=== PATIENT | female | born 1955 | race Caucasian/White ===

== ENCOUNTER → 2019-06-24 | Outpatient (CLI) | payer SELFPAY ==
[2019-06-24 16:03] VITALS: BP 135/72; PULSE 64; RESP 18; TEMP 97.6; BMI 36.5
--- NOTE | 2019-06-24 16:45 | P.GSHP ---
History of Present Illness H&P Date: 06/24/19 Chief Complaint: Radiographic abnormality left breast The patient is a 64-year-old white female [place] [id number]. Following this there was noted to be some changes of concern in the breast and it was recommended that she undergo bilateral breast ultrasound. [place] [address]. In the right breast there was a small lesion felt to be consistent with a lipoma and in the 12 o'clock position of the left breast was circumscribed oval mass measuring 1.1 x 1.1 cm. Patient in the left breast was felt to be suspicious enough to warrant ultrasound core biopsy. The patient has not felt anything in her b reast. She has no nipple discharge or skin changes. She has no history of any trauma or infection in the breast. Family History: none Hormonal History: menarche: 13 , breast fed: yes, age at first : 30 menopause: 54 BCP: 10 years hormones: none Past surgical history: 1. Tonsillectomy 2. Past medical history: HTN Social History: smoke: stopped 2 years ago, used to smoke 1/2 PPD, for 30 years alcohol: none drugs: none - Constitutional Constitutional: Denies chills, Denies fever - EENT Comment: glaucoma Eyes: denies blurred vision, denies pain Ears: deny: decreased hearing, tinnitus Ears, nose, mouth and throat: Denies headache, Denies sore throat - Breasts Breasts: bilateral: as per HPI - Cardiovascular Cardiovascular: Reports high blood pressure, Denies chest pain, Denies shortness of breath - Respiratory Comment: former smoker - Gastrointestinal Gastrointestinal: Denies abdominal pain, Denies diarrhea, Denies nausea, Denies vomiting - Genitourinary (Female) Genitourinary: Denies dysuria, Denies hematuria - Menstruation Menstruation: Reports postmenopausal - Musculoskeletal Musculoskeletal: Denies myalgias - Integumentary Integumentary: Denies pruritus, Denies rash - Neurological Comment: essential tremor for 6 years ago Neurological: Reports tremors - Psychiatric Psychiatric: Reports anxiety, Reports depression - Endocrine Endocrine: Reports weight change, Denies fatigue - Hematologic/Lymphatic Comment: low dose aspirin, stopped for biopsy - Allergic/Immunologic Allergic/Immunologic: Reports as per HPI Past Medical History History of Any Multi-Drug Resistant Organisms: None Reported Smoking Status: Former smoker Medications and Allergies Home Medications Medication Instructions Recorded Confirmed Type Aspirin [Adult Low Dose Aspirin EC] 81 mg PO DAILY 06/16/19 06/24/19 History Escitalopram [Lexapro] 10 mg PO DAILY 06/16/19 06/24/19 History Latanoprost/Pf [Latanoprost 0.005% 1 drop BOTH EYES HS 06/16/19 06/24/19 History Eye Drop] Lisinopril-Hctz 10-12.5 mg 1 tab PO DAILY 06/16/19 06/24/19 History [Zestoretic 10-12.5] Lovastatin [Mevacor] 40 mg PO HS 06/16/19 06/24/19 History Primidone [Mysoline] 50 mg PO BID 06/16/19 06/24/19 History Propranolol HCl [Propranolol HCl 80 mg PO DAILY 06/16/19 06/24/19 History ER] Timolol 0.5% Ophth Soln [Timoptic 1 drop BOTH EYES DAILY 06/16/19 06/24/19 History 0.5% Ophth Soln] clonazePAM [KlonoPIN] 0.5 mg PO DAILY 06/16/19 06/24/19 History Allergies Allergy/AdvReac Type Severity Reaction Status Date / Time meperidine [From Demerol] AdvReac Nausea Unverified 06/24/19 16:03 Surgical - Exam Vital Signs Temp Pulse Resp BP Pulse Ox 97.6 F 64 18 135/72 95 06/24/19 15:59 06/24/19 15:59 06/24/19 15:59 06/24/19 15:59 06/24/19 15:59 BMI 36.5 - General well developed, well nourished, no distress - Eyes normal ocular movement - ENT no hearing loss, no congestion - Neck trachea midline - Respiratory normal respiratory effort, clear to auscultation - Cardiovascular Rhythm: regular Heart Sounds: normal: S1, S2 - Abdomen Abdomen: soft, non tender, no guarding, no rigid, no rebound - Integumentary normal turgor - Neurologic no disoriented, no combative - Musculoskeletal normal gait, normal posture - Psychiatric oriented to time, oriented to person, oriented to place, speech is normal, memory intact Breast examination: Right breast: Multi-positional exam fibrocystic changes no dominant mass or nodules of concern Right axilla: No adenopathy of concern Left breast: Multiple positional exam fibroglandular increased density of tissue behind the nipple areolar complex, no other dominant masses or nodules of concern Left axilla: No adenopathy of concern Results Mammogram and ultrasound results reviewed Right breast to have repeat mammogram and ultrasound in 6 months to be cautious and follow this Left breast: Ultrasound-guided core biopsy of 12:00 lesion which corresponds to probably lesion behind the area where complex Assessment and Plan Assessment: Impression: 1. Mammographic abnormality of the breast 2. Ultrasound abnormality of the breast 2. Fibrocystic breast changes 4. Increased nodularity in the left posterior work area 5. Hypertension 6. Essential tremor 7. Anxiety/depression I discussed with the patient the need for a left breast ultrasound core biopsy. We will have discussed this and benefits and she wishes to proceed. Plan: 1. Ultrasound core biopsy left breast 2. Right breast mammogram and ultrasound in 6 months 3. Medical management of medical conditions CC: DR. Jayleen Mares
== END | disposition home or self-care (01) ==
LOC: WWCWWP 15:52
PROVIDERS: ATTEND Surgery
DX: Z53.9 Procedure and treatment not carried out, unspecified reason (principal)

== ENCOUNTER → 2019-06-30 | Day surgery (SDC) | payer SELFPAY ==
[2019-06-30 13:24] VITALS: BP 140/78; PULSE 59; RESP 16; TEMP 98.1; BMI 37.8
--- NOTE | 2019-06-30 14:53 | USB ---
EXAMINATION TYPE: US discontinued breast bx LT DATE OF EXAM: 06/30/2019 COMPARISON: Outside left breast ultrasound and diagnostic mammogram dated 05/26/2019 CLINICAL HISTORY: Left breast ductal ectasia with internal debris. Request for biopsy. No nipple disc harge. Patient is asymptomatic. PROCEDURE: Real-time imaging was performed of the patient's retroareolar region with attention to the 12:00 position in the left breast. The previously seen ductal ectasia is redemonstrated however no i ntraductal filling defect or debris is seen. The patient again is asymptomatic without nipple dischar ge. Therefore no percutaneous biopsy was performed. Findings and recommendation for six-month follow- up left breast ultrasound were discussed with the patient. IMPRESSION: BI-RADS 3-probably benign. Ductal ectasia with no intraductal filling defect. The patien t was counseled on the nipple discharge and return if anything discharge recurs prior to the 6 month follow-up ultrasound.
== END | disposition home or self-care (01) ==
LOC: RADUSWWP 13:04
PROVIDERS: ATTEND Surgery
DX: R92.8 Other abnormal and inconclusive findings on diagnostic imaging of breast (principal); Z53.8 Procedure and treatment not carried out for other reasons

== ENCOUNTER → 2020-01-03 | Outpatient (CLI) | payer BC ==
--- NOTE | 2020-01-04 08:00 | MM ---
Reason for exam: follow-up at short interval from prior study. Last mammogram was performed 16 years and 10 months ago. History: Patient is postmenopausal. US discontinued breast bx LT of the left breast, June 30, 2019. Physical Findings: Nurse did not find any significant physical abnormalities on exam. MG 3D Diag Mammo W/Cad CORBIN Bilateral CC and MLO view(s) were taken. Prior study comparison: May 26, 2019, mammogram. There are scattered fibroglandular densities. 6mm nodular focal asymmetry 5-6 o'clock right breast zone A. Otherwise, no significant change. These results were verbally communicated with the patient and result sheet given to the patient on 01/03/20. ASSESSMENT: Incomplete: need additional imaging evaluation, BI-RAD 0 RECOMMENDATION: Ultrasound of both breasts.
--- NOTE | 2020-01-04 08:06 | USB ---
Reason for exam: additional evaluation requested from abnormal screening. History: Patient is postmenopausal. US discontinued breast bx LT of the left breast, June 30, 2019. US Breast Limited BILAT Right limited breast ultrasound including focal area of concern, retroareolar and axilla demonstrates a 3 x 2 x 4mm oval, cystic, benign lesion at 6 o'clock and a 5 x 2 x 7mm oval, cystic, benign lesion at 6 o'clock. Left limited breast ultrasound including focal area of concern, retroareolar and axilla demonstrates a 11 x 6 x 12mm oval, hyperechoic, questionable lipoma at 2 o'clock stable for 6 months, additional follow up recommended and duct ectasia at the posterior nipple. Right scanned 5-9 o'clock. Left scanned 12-3 o'clock. These results were verbally communicated with the patient and result sheet given to the patient on 01/03/20. ASSESSMENT: Probably benign, BI-RAD 3 RECOMMENDATION: Follow-up diagnostic mammogram of the right breast in 6 months. Ultrasound of the left breast in 6 months. (2 o'clock)
== END | disposition home or self-care (01) ==
LOC: RADMAMWWP 13:28
PROVIDERS: ATTEND Surgery
DX: R92.8 Other abnormal and inconclusive findings on diagnostic imaging of breast (principal)
CPT/HCPCS: 77062; 77066

== ENCOUNTER → 2022-04-30 | Outpatient (CLI) | payer MEDICARE ==
--- NOTE | 2022-04-30 15:01 | MM ---
Reason for Exam: Follow-up at short interval from prior study. Last mammogram was performed 2 year(s) and 4 month(s) ago. Patient History: Menarche at age 14. First Full-Term at age 30. Postmenopausal. 06/30/2019, US discontinued breast bx LT on the left side. Risk Values: Judit 5 year model risk: 1.9%. NCI Lifetime model risk: 6.7%. Prior Study Comparison: 03/14/2003 Bilateral Screening Mammogram, [facility]. 05/26/2019 Screening Mammogram, Unknown. 01/03/2020 Bilateral Diagnostic Mammogram, [facility]. Tissue Density: There are scattered fibroglandular densities. Findings: Analyzed By CAD. Circumscribed low density nodularity medial subareolar right cc view remains unchanged for 2 years 4 months. This is compatible with a benign etiology. No significant change from prior exams. Overall Assessment: Benign, BI-RAD 2 Management: Screening Mammogram of both breasts in 1 year. 1. A clinical breast exam by your physician is recommended on an annual basis and results should be correlated with mammographic findings. 2. Patient should continue monthly self breast exams. 3. This exam should not preclude additional follow-up of suspicious palpable abnormalities. Results were given to the patient verbally at the time of exam. Electronically signed and approved by: Mary Carmen M.D. Radiologist
--- NOTE | 2022-04-30 18:57 | BD ---
EXAMINATION TYPE: Axial Bone Density DATE OF EXAM: 04/30/2022 COMPARISON: NONE CLINICAL HISTORY: 67 years year old Female. ICD-10 CODE: Z780 POST MENOPAUSAL WITHOUT HRT Height: 4 FT 10 1/2 IN Weight: 164 FRAX RISK QUESTIONS: Alcohol (3 or more units per day): NO Family History (Parent hip fracture): NO Glucocorticoids (More than 3mos): NO (Ex: prednisone, prednisolone, methylprednisolone, dexamethasone, and hydrocortisone). History of Fracture in Adulthood: NO Secondary Osteoporosis: 1. Type 1 Diabetes: NO 2. Hyperthyroidism: NO 3. Menopause before 45: NO 4. Malnutrition: NO 5. Chronic liver disease: NO Rheumatoid Arthritis: NO Current Tobacco Use: NO RISK FACTORS HISTORY OF: Surgery to Spine/Hip(right/left)/Wrist (right/left): NO Family History of Osteoporosis: NO Active: NO Diet low in dairy products/other sources of calcium: NO Postmenopausal woman: YES Take estrogen and/or progesterone medications: NO Lost more than 2 inches in height since high school: NO Frequent falls: NO Poor Health: GOOD Hyperparathyroidism: NO Adrenal Insufficiency: NO MEDICATIONS: Additional Medications: TOPAMAX, KLONOPIN, INDERAL,BETIMOL,XALATAN,LISINOPRIL CRESTOR Additional History: EXAM MEASUREMENTS: Bone mineral densitometry was performed using the [employer] System. Bone mineral density as measured about the Lumbar spine is: ----- L1-L4(G/cm2): 1.128 T Score Values are as follows: ----- L1: -1.0 ----- L2: -0.1 ----- L3: 0.5 ----- L4: -1.2 ----- L1-L4: -0.4 [facility] Bone mineral density about the R hip (g/cm2): 0.906 Bone mineral density about the L hip (g/cm2): 0.891 T Score values are as follows: -----R Neck: -0.9 -----L Neck: -1.1 -----R Total: -0.1 -----L Total: -0.1 [facility] FRAX%s: The graph provided illustrates a 3.0 % chance for a major osteoporotic fx and a 0.4 % chance for the hips probability for fx in 10 years time. IMPRESSION: Osteopenia (T Score between -2.5 and -1). There is slightly increased risk of fracture and the patient may be considered for treatment. Re-Screen 2-5 years. NOTE: T-SCORE=SD OF THE YOUNG ADULT MEAN.
== END | disposition home or self-care (01) ==
LOC: RADMAMWWP 13:05
PROVIDERS: ATTEND Family Medicine
DX: R92.8 Other abnormal and inconclusive findings on diagnostic imaging of breast (principal); Z78.0 Asymptomatic menopausal state
CPT/HCPCS: 77066; 77080

== ENCOUNTER → 2022-04-30 | Outpatient (CLI) | payer OTHER ==
[2022-04-30 13:32] VITALS: BP 143/84; PULSE 55; RESP 17; TEMP 98.7
--- NOTE | 2022-04-30 14:44 | P.HPOB ---
History of Present Illness H&P Date: 04/30/22 Chief Complaint: The patient is here for her routine gynecologic exam and ma mmogram. This is a 67-year-old with an LMP of 2008. The patient is here to establish with this office. It has been more than 5 years since her last pelvic exam. She is without gynecologic complaints. Her last mammogram on 01/03/2020 did require bilateral ultrasound. A 6 month follow-up for a right diagnostic mammogram and left breast ultrasound was recommended. This was not done by the patient. She had one bone density test done at age 41 and she states it was normal. Review of Systems The patient's weight has been stable over the last year. She denies respiratory, cardiac, or G.I. problems. Past Medical History Past Medical History: Hyperlipidemia, Hypertension Additional Past Medical History / Comment(s): ESSENTIAL TREMOR, GLAUCOMA. PAST INSURANCE SOLICITOR HISTORY: She has no history of STDs. Cryotherapy of the cervix in approximately 1999. History of Any Multi-Drug Resistant Organisms: None Reported Past Surgical History: Section, Tonsillectomy Additional Past Surgical History / Comment(s): LASIK EYE SURGERY. section. Past Anesthesia/Blood Transfusion Reactions: No Reported Reaction Past Psychological History: Anxiety, Depression (No current depression without medications.) Smoking Status: Former smoker Past Alcohol Use History: None Reported Additional Past Alcohol Use History / Comment(s): Quit smoking in 2018. Past Drug Use History: None Reported Additional History: She has been since 1980. Her has been diagnosed with lung cancer. She is a retired hedge fund accountant. - Past Family History Mother Additional Family Medical History / Comment(s): Brain aneurysm. Father Family Medical History: Diabetes Mellitus Sister(s) Additional Family Medical History / Comment(s): Obesity. Brother(s) Additional Family Medical History / Comment(s): Cardiac arrhythmia. Medications and Allergies Home Medications Medication Instructions Recorded Confirmed Type Aspirin [Adult Low Dose Aspirin EC] 81 mg PO DAILY 06/16/19 04/30/22 History Latanoprost/Pf [Latanoprost 0.005% 1 drop BOTH EYES HS 06/16/19 04/30/22 History Eye Drop] Lisinopril-Hctz 10-12.5 mg 1 tab PO DAILY 06/16/19 04/30/22 History [Zestoretic 10-12.5] Propranolol HCl [Propranolol HCl 80 mg PO DAILY 06/16/19 04/30/22 History ER] Timolol 0.5% Ophth Soln [Timoptic 1 drop BOTH EYES DAILY 06/16/19 04/30/22 History 0.5% Ophth Soln] clonazePAM [KlonoPIN] 0.5 mg PO DAILY 06/16/19 04/30/22 History Ascorbic Acid [Vitamin C] 1,000 mg PO DAILY 04/30/22 04/30/22 History Calcium Carbonate [Calcium] 600 mg PO DAILY 04/30/22 04/30/22 History Cholecalciferol [Vitamin D3 (25 50 mcg PO DAILY 04/30/22 04/30/22 History Mcg = 1000 Iu)] Cyanocobalamin (Vitamin B-12) 1,000 mcg PO DAILY 04/30/22 04/30/22 History [Vitamin B12] Rosuvastatin [Crestor] 10 mg PO DAILY 04/30/22 04/30/22 History Topiramate [Topamax] 25 mg PO DAILY 04/30/22 04/30/22 History Zinc 50 mg PO DAILY 04/30/22 04/30/22 History Allergies Allergy/AdvReac Type Severity Reaction Status Date / Time meperidine [From Demerol] AdvReac Nausea Unverified 04/30/22 13:18 Exam Vital Signs Temp Pulse Resp BP Pulse Ox 04/30/22 13:28 98.7 F 55 L 17 143/84 97 Intake and Output 04/29/22 04/30/22 04/30/22 22:59 06:59 14:59 Other: Weight 75.296 kg Height 4 feet 11 inches, weight 166 pounds, BMI 33.5. This is a well-developed well-nourished white female who is alert and oriented times 3 in no acute distress. HEENT: Within normal limits. NECK: Supple without mass or thyromegaly. CHEST AND LUNGS: Clear to auscultation. HEART: Regular rate and rhythm. BREASTS: Are without mass or discharge. AXILLARY EXAM: Negative for adenopathy. BACK: Negative for CVA tenderness. ABDOMEN: Soft, nontender, without palpable masses. PELVIC EXAM: Normal external genitalia with mild atrophy. Cervix and vagina appear normal if he. There is no unusual discharge. There is no evidence of prolapse. The uterus is midposition, nongravid size and nontender. There are no palpable adnexal masses or tenderness. RECTAL EXAM: Rectovaginal exam is negative for mass or tenderness and is negative for occult blood. EXTREMITIES: Nontender. IMPRESSION: 1. 67-year-old menopausal female with normal gynecologic exam. 2. No recent cervical screening (> 5yrs) with history of cryotherapy of the cervix approximately in 1999. 3. Previous abnormal mammogram in 1999 where follow-up was not done as recommended after 6 months. PLAN: 1. Pap smear cotest was performed. If this is negative, we will plan on repeating the Pap smear cotest an approximate 5 years and if they are both negative, we will plan on discontinuing Pap smears at that time. 2. Self breast awareness was discussed with the patient. We have also discussed symptoms associated with inflammatory breast cancer. 3. Diagnostic mammogram will be done today. 4. Osteoporosis prevention was discussed. I have stressed the importance of adequate calcium, vitamin D and regular exercise. Recommended amounts of calcium and vitamin D were also discussed. Bone density test will be done today. Her last bone density test was done at age 41 and was normal per the patient. 5. She has completed her Covid vaccination series 6. The patient was advised to return in 1-2 years for her well woman examination.
== END | disposition home or self-care (01) ==
LOC: WWCWWP 13:00
PROVIDERS: ATTEND Obstetrics & Gynecology
DX: Z53.9 Procedure and treatment not carried out, unspecified reason (principal)

== ENCOUNTER → 2023-05-01 | Outpatient (CLI) | payer MEDICARE ==
--- NOTE | 2023-05-04 18:45 | MM ---
Reason for Exam: Screening (asymptomatic). Last screening mammogram was performed 12 month(s) ago. Patient History: Menarche at age 14. First Full-Term at age 30. Postmenopausal. 06/30/2019, US discontinued breast bx LT on the left side. Risk Values: Judit 5 year model risk: 1.9%. NCI Lifetime model risk: 6.4%. Prior Study Comparison: 05/26/2019 Screening Mammogram, Unknown. 01/03/2020 Bilateral Diagnostic Mammogram, [facility]. 04/30/2022 Bilateral MG diagnostic mammo w CAD CORBIN, [facility]. Tissue Density: There are scattered fibroglandular densities. Findings: Analyzed By CAD. Chronic nodularity inferior subareolar right breast. There is no suspicious group of microcalcifications or new suspicious mass in either breast. Overall Assessment: Benign, BI-RAD 2 Management: Screening Mammogram of both breasts in 1 year. . Patient should continue monthly self-breast exams. A clinical breast exam by your physician is recommended on an annual basis. This exam should not preclude additional follow-up of suspicious palpable abnormalities. Note on Judit scores and lifetime risk: 1. A Judit score greater than 3% is considered moderate risk. If this is the case, consider specialist referral to assess eligibility for a risk reducing agent. 2. If overall lifetime risk for the development of breast cancer is 20% or higher, the patient may qualify for future screening with alternating mammogram and breast MRI. Electronically signed and approved by: Mary Carmen M.D. Radiologist
== END | disposition home or self-care (01) ==
LOC: RADMAMWWP 13:59
PROVIDERS: ATTEND Internal Medicine
DX: Z12.31 Encounter for screening mammogram for malignant neoplasm of breast (principal); Z78.0 Asymptomatic menopausal state
CPT/HCPCS: 77063; 77067

== ENCOUNTER → 2024-05-04 | Outpatient (CLI) | payer MEDICARE ==
--- NOTE | 2024-05-07 12:59 | MM ---
Reason for Exam: Screening (asymptomatic). Last screening mammogram was performed 12 month(s) ago. Patient History: Menarche at age 14. First Full-Term at age 30. Postmenopausal. 06/30/2019, US discontinued breast bx LT on the left side. Risk Values: Judit 5 year model risk: 1.9%. NCI Lifetime model risk: 6.2%. Prior Study Comparison: 01/03/2020 Bilateral Diagnostic Mammogram, [facility]. 04/30/2022 Bilateral MG diagnostic mammo w CAD CORBIN, [facility]. 05/01/2023 Bilateral MG 3D screening mammo w/cad, [facility]. Tissue Density: The breasts are almost entirely fatty. Findings: Analyzed By CAD. Right breast: There is no suspicious group of microcalcifications or new suspicious mass. Left breast: There is no suspicious group of microcalcifications or new suspicious mass. Overall Assessment: Negative, BI-RAD 1 Management: Screening Mammogram of both breasts in [address] [facility] will attempt to contact patient to return for supplemental views and ultrasound if indicated. Patient should continue monthly self-breast exams. A clinical breast exam by your physician is recommended on an annual basis. This exam should not preclude additional follow-up of suspicious palpable abnormalities. Note on Judit scores and lifetime risk: 1. A Judit score greater than 3% is considered moderate risk. If this is the case, consider specialist referral to assess eligibility for a risk reducing agent. 2. If overall lifetime risk for the development of breast cancer is 20% or higher, the patient may qualify for future screening with alternating mammogram and breast MRI. Electronically signed and approved by: Wilian Schreiber DO
== END | disposition home or self-care (01) ==
LOC: RADMAMWWP 13:10
PROVIDERS: ATTEND Internal Medicine
DX: Z12.31 Encounter for screening mammogram for malignant neoplasm of breast (principal); Z78.0 Asymptomatic menopausal state
CPT/HCPCS: 77063; 77067

== ENCOUNTER → 2024-12-17 | Outpatient (CLI) | payer MEDICARE ==
--- NOTE | 2024-12-17 16:30 | US ---
EXAMINATION TYPE: US carotid duplex BILAT DATE OF EXAM: 12/17/2024 COMPARISON: NONE CLINICAL INDICATION: Female, 69 years old with history of [id number] CAROTID STENOSIS BILAT; Carotid steno sis per order. Prior smoker, hypertension, hyperlipidemia, prediabetic. Additional History: .... TECHNIQUE: Grayscale, color Doppler and spectral Doppler evaluation of the bilateral carotid systems and vertebral arteries. Indirect Doppler criteria was utilized. FINDINGS: EXAM MEASUREMENTS: RIGHT: Peak Systolic Velocity (PSV) cm/sec ----- Right CCA: 84.2 ----- Right ICA: 119.5 ----- Right ECA: 91.9 ICA/CCA ratio: 1.4 RIGHT: End Diastole cm/sec ----- Right CCA: 20.4 ----- Right ICA: 31.4 ----- Right ECA: 12.8 LEFT: Peak Systolic Velocity (PSV) cm/sec ----- Left CCA: 91.9 ----- Left ICA: 99.1 ----- Left ECA: 90.8 ICA/CCA ratio: 1.1 LEFT: End Diastole cm/sec ----- Left CCA: 21.5 ----- Left ICA: 24.1 ----- Left ECA: 9.5 VERTEBRALS (direction of flow): Right Vertebral: Antegrade Left Vertebral: Antegrade Rhythm: Normal [employer] NOTES: No elevated velocities. Plaque seen within bulbs and bilateral proximal bifurcatio ns. Color Doppler imaging shows patency with blood flow throughout the carotid artery. IMPRESSION: Right: No hemodynamically significant stenosis. Left: No hemodynamically significant stenosis. Criteria for Assigning % of Stenosis / Diameter reduction (Estimation based on the indirect measurements of the internal carotid artery velocities (ICA PSV). 1. Normal (no stenosis)=ICA PSV < 125 cm/s: ratio < 2.0: ICA EDV<40 cm/s. 2. Less than 50% stenosis=ICA PSV < 125 cm/s: ratio < 2.0: ICA EDV<40 cm/s. 3. 50 to 69% stenosis=ICA PSV of 125 to 230 cm/s: ration 2.0 ? 4.0: ICA EDV 40-100 cm/s. 4. Greater than 70% stenosis to near occlusion= ICA PSV > 230 cm/s: ratio > 4.0: ICA EDV > 100 cm/s. 5. Near occlusion= ICA PSV velocities may be low or undetectable: variable ratio and ICA EDV. 6. Total occlusion=unable to detect flow. [facility], , 12/17/2024 4:28 PM
--- NOTE | 2024-12-18 15:09 | BD ---
EXAMINATION TYPE: Axial Bone Density DATE OF EXAM: 12/17/2024 CLINICAL HISTORY: 69 years old Female. ICD-10 CODE: Z78.0 ASYMPTOMATIC MENOPAUSAL STATE , Additional History: Height: 58.5 Weight: 129 FRAX RISK QUESTIONS: Family History (Parent hip fracture): no History of Fracture in Adulthood: no Secondary Osteoporosis: no RISK FACTORS HISTORY OF: Surgery to Spine/Hip(right/left)/Wrist (right/left): no MEDICATIONS: Thyroid Medications: no Osteoporosis Medications: no EXAM MEASUREMENTS: Bone mineral densitometry was performed using the [employer]. Bone mineral density as measured about the Lumbar spine is: ----- L1-L4(G/cm2): 1.116 T Score Values are as follows: ----- L1: -1.5 ----- L2: -0.8 ----- L3: 0.1 ----- L4: -0.3 ----- L1-L4: -0.5 Z Score Values are as follows: ----- L1: 0.4 ----- L2: 1.0 ----- L3: 2.0 ----- L4: 1.5 ----- L1-L4: 1.3 Bone mineral density has: Decreased -1.1% since study of: 04/30/2022 Bone mineral density about the R hip (g/cm2): 0.918 Bone mineral density about the L hip (g/cm2): 0.897 T Score values are as follows: -----R Neck: -1.3 -----L Neck: -1.4 -----R Total: -0.7 -----L Total: -0.9 Z Score values are as follows: -----R Neck: 0.4 -----L Neck: 0.4 -----R Total: 0.8 -----L Total: 0.7 Bone mineral density has: Decreased -9.1% since study of: 04/30/2022 FRAX%s: The graph provided illustrates a 9.5% chance for a major osteoporotic fx and a 1.2% chance fo r the hips probability for fx in 10 years time. IMPRESSION: Normal (Values between +1 and -1 indicate normal bone mass). Consider repeating this study in 5 year s or sooner if there is some new clinical indication. NOTE: T-SCORE=SD OF THE YOUNG ADULT MEAN. [facility], , 12/18/2024 3:07 PM
== END | disposition home or self-care (01) ==
LOC: RADBDWWP 15:16
PROVIDERS: ATTEND Internal Medicine
DX: Z13.820 Encounter for screening for osteoporosis (principal); E78.5 Hyperlipidemia, unspecified; I10 Essential (primary) hypertension; M85.89 Other specified disorders of bone density and structure, multiple sites; I65.23 Occlusion and stenosis of bilateral carotid arteries; Z87.891 Personal history of nicotine dependence; Z78.0 Asymptomatic menopausal state
CPT/HCPCS: 77080; 93880

== ENCOUNTER → 2025-05-05 | Outpatient (CLI) | payer MEDICARE ==
--- NOTE | 2025-05-05 14:33 | MM ---
Reason for Exam: Screening (asymptomatic). Last screening mammogram was performed 12 month(s) ago. Patient History: Menarche at age 14. First Full-Term at age 30. Postmenopausal. Patient has history of breast feeding. 06/30/2019, US discontinued breast bx LT on the left side. Risk Values: Judit 5 year model risk: 1.9%. NCI Lifetime model risk: 5.9%. Prior Study Comparison: 05/26/2019 Screening Mammogram, Unknown. 01/03/2020 Bilateral Diagnostic Mammogram, [facility]. 04/30/2022 Bilateral MG diagnostic mammo w CAD [facility], [facility]. 05/01/2023 Bilateral MG 3D screening mammo w/cad, [facility]. 05/04/2024 Bilateral MG 3D screening mammo w/cad, [facility]. Tissue Density: There are scattered areas of fibroglandular density. Findings: Analyzed By CAD. There is no suspicious group of microcalcifications or new suspicious mass in either breast. Overall Assessment: Negative, BI-RAD 1 Management: Screening Mammogram of both breasts in 1 year. Patient should continue monthly self-breast exams. A clinical breast exam by your physician is recommended on an annual basis. This exam should not preclude additional follow-up of suspicious palpable abnormalities. Note on Judit scores and lifetime risk: 1. A Judit score greater than 3% is considered moderate risk. If this is the case, consider specialist referral to assess eligibility for a risk reducing agent. 2. If overall lifetime risk for the development of breast cancer is 20% or higher, the patient may qualify for future screening with alternating mammogram and breast MRI. [facility], , 05/05/2025 2:30 PM. Electronically signed and approved by: Mary Carmen M.D. Radiologist
== END | disposition home or self-care (01) ==
LOC: RADMAMWWP 09:59
PROVIDERS: ATTEND Internal Medicine
DX: Z12.31 Encounter for screening mammogram for malignant neoplasm of breast (principal); R92.323 Mammographic fibroglandular density, bilateral breasts; Z78.0 Asymptomatic menopausal state
CPT/HCPCS: 77063; 77067